=== PATIENT | female | born 1985 | race African-American/Black ===

== ENCOUNTER 2016-12-15 19:21 | Emergency (ER) | payer OTHER, MEDICAID ==
[2016-12-15 19:47] VITALS: BP 119/78; PULSE 72; RESP 16; TEMP 98.2; O2SAT 98
--- NOTE | 2016-12-15 20:28 | UCPHY ---
H & P Time Seen by Provider: 12/15/16 20:08 Patient Type: Established HPI/ROS: CHIEF COMPLAINT: Left ear pain HISTORY OF PRESENT ILLNESS: 31-year-old female reports using a suction type device in order to trying get the wax out of her left ear 2 days ago. She is complaining of pain in the year. No fever. No cold symptoms. No discharge from the ear. Does have a history of having impacted earwax. [No fever, chills, chest pain, shortness of breath, palpitations, vomiting, diarrhea, urinary complaints, headache, lightheadedness. ] REVIEW OF SYSTEMS: Aside from elements discussed in the HPI, a comprehensive 10-point review of systems was reviewed and is negative. PAST MEDICAL HISTORY: Bipolar, anxiety. SOCIAL HISTORY: Nonsmoker. GENERAL APPEARANCE: No acute distress. Well developed well nourished. Alert and oriented x3. FOCUSED EXAM OF HEENT: Atraumatic. Pupils are equal round reactive to light. Extraocular movements are intact. No conjunctival injection. No icterus. Left tympanic membrane occluded with hard wax. External auditory canal normal. Small amount of the left TM is visualized and is normal. Right tympanic membrane occluded 100% with wax. Oropharynx clear, no erythema, no lesions. Neck is supple. Lungs clear to auscultation. Heart regular rate and rhythm. Abdomen soft and nontender. Smoking Status: Never smoked Constitutional: Initial Vital Signs Temperature (C) 36.8 C 12/15/16 19:40 Heart Rate 72 12/15/16 19:40 Respiratory Rate 16 12/15/16 19:40 Blood Pressure 119/78 12/15/16 19:40 O2 Sat (%) 98 12/15/16 19:40 O2 Delivery Mode Room Air Allergies/Adverse Reactions: morphine Allergy (Severe, Verified 12/15/16 19:44) Anaphylaxis Home Medications: Medication Instructions Recorded traZODONE 02/09/14 Cymbalta 09/26/16 Abilify 12/15/16 Ibuprofen [Motrin (*)] 600 mg PO TID PRN #15 tab 12/15/16 Propranolol HCl 12/15/16 Seroquel 12/15/16 MDM/Departure - MDM Medications Given: Discontinued Medications Ibuprofen (Motrin) 600 mg PO EDNOW ONE Stop: 12/15/16 20:45 Last Admin: 12/15/16 20:48 Dose: 600 mg ED Course/Re-evaluation: Lighted ear curette not available at the [facility]. Small amount of wax was able to be removed from the left external auditory canal , however, the wax is very deep and patient does not tolerate the removal well. Patient was advised to begin using debrox wax removal as directed and to follow up at [facility]. She was given referral to Dr. Chaves. She received Motrin 600 mg. Differential Diagnosis: Differential diagnoses for the patient's symptom complex was considered including but not limited to cerumen impaction, otitis externa, otitis media, perforated tympanic membrane, foreign body. - Depart Disposition: Home, Routine, Self-Care Clinical Impression: Pain in left ear Cerumen impaction Qualifiers: Laterality: bilateral Qualified Code(s): H61.23 - Impacted cerumen, bilateral Condition: Good Instructions: Cerumen Impaction (ED) Additional Instructions: Please obtain an ear wax removal solution at the grocery store or pharmacy. Use this as directed. Follow up with your primary care physician on Saturday if you have not had improvement of your symptoms. Take Tylenol or ibuprofen as needed for pain Prescriptions: Ibuprofen [Motrin (*)] 600 mg PO TID PRN #15 tab PRN Reason: Pain, Breakthrough Referrals: Unknown,Unknown [Primary Care Provider] - As per Instructions Ninoska Chaves MD [Medical Doctor] - As per Instructions - PQRS PQRS Measurement: 134: Depression screening and followup, PRIME MD-PHQ2 (12 years and older) Over the last 2 weeks, how often have you been bothered by any of the following problems? 1. Feeling down, depressed, or hopeless? 2. Little interest or pleasure in doing things? Patient answered no to both 1 and 2 130: Documentation of medications. Reviewed all patient medications, doses, route and frequency. 226: Do you smoke? No. 47: 65 and older: Advanced care planning. Patient not over age 65. 51: 18 years old and older with diagnosis of COPD, spirometry performance. Patient has no history of COPD 52: 18 years old and older with COPD and symptoms of COPD or FEV1<60% predicted prescribed a B Agonist. Patient has no history of COPD
[2016-12-15] MEDS ORDERED: IBUPROFEN 200 MG TAB PO ONE (20:44)
== END 2016-12-15 20:55 | disposition home or self-care (01) ==
LOC: CED 19:21
PROC: F09Z3ZZ Cerumen Management Treatment (ICD-10-PCS; principal; 2016-12-15)
DX: H61.22 Impacted cerumen, left ear (principal)
CPT/HCPCS: 69210; G0463; 99214-PO

== ENCOUNTER 2016-12-20 16:36 | Emergency (ER) | payer OTHER, MEDICAID ==
[2016-12-20 17:17] VITALS: BP 114/80; PULSE 80; RESP 16; TEMP 97.9; O2SAT 96
[2016-12-20] MEDS ORDERED: CARBAMIDE PEROXIDE 15 ML BOTTLE EACHEAR ONE (17:35)
--- NOTE | 2016-12-20 18:08 | UCPHY ---
H & P Time Seen by Provider: 12/20/16 17:27 Patient Type: Established HPI/ROS: This patient reports a feeling of both ears being plugged. Her recent history is notable for being diagnosed with otitis media and placed on amoxicillin few days ago. Her symptoms been present over the past few days. The otitis media diagnosis is made an outlying clinic. Past Medical/Surgical History: Reviewed as per nurse's triage she Smoking Status: Unknown if ever smoked Physical Exam: Physical Exam Vital signs are normal. General: No acute distress HEENT: Nose: Clear discharge bilaterally. No sinus tenderness to percussion. Ears: Cerumen impaction bilaterally. Oropharynx: No erythema or exudates. No dysphonia. No drooling or stridor. Eyes: Pupils equal and react to light. Extraocular motions are intact. Lungs: No respiratory distress. Cardiac: Regular rate and rhythm with no murmur gallop or rub Skin: No rash or pallor. Neuro: Alert with no focal deficits noted. Constitutional: Initial Vital Signs Temperature (C) 36.6 C 12/20/16 17:13 Heart Rate 80 12/20/16 17:13 Respiratory Rate 16 12/20/16 17:13 Blood Pressure 114/80 12/20/16 17:13 O2 Sat (%) 96 12/20/16 17:13 O2 Delivery Mode Room Air Allergies/Adverse Reactions: morphine Allergy (Severe, Verified 12/20/16 17:17) Anaphylaxis Home Medications: Medication Instructions Recorded Cymbalta 09/26/16 Propranolol HCl 12/15/16 Seroquel 12/15/16 Medical Decision Making ED Course/Re-evaluation: Debrox bilateral ears. Our tech and nurse then irrigated out ears with removal of cerumen. On repeat exam patient has right external canal and TM are clear left external canal clear with exception of minimal cerumen up against the tympanic membrane with opacity to the tympanic membrane but no significant erythema. - Data Points Medications Given: Discontinued Medications Carbamide Peroxide (Debrox) 5 drop EACHEAR EDNOW ONE Stop: 12/20/16 17:36 Last Admin: 12/20/16 17:41 Dose: 5 drops Departure - Departure Disposition: Home, Routine, Self-Care Clinical Impression: Impacted cerumen of both ears Condition: Good Instructions: Cerumen Impaction (ED) Additional Instructions: Diagnosis: Cerumen impaction bilaterally-resolved Plan: Continue amoxicillin to continue treating the left ear. Return for any worsening despite treatment plan Referrals: Doctor Not,On Staff, MD [Primary Care Provider] - As per Instructions - PQRS PQRS Measurement: NA
== END 2016-12-20 18:23 | disposition home or self-care (01) ==
LOC: CED 16:36
PROC: 3E1B78Z Irrigation of Ear using Irrigating Substance, Via Natural or Artificial Opening (ICD-10-PCS; principal; 2016-12-20)
DX: H61.23 Impacted cerumen, bilateral (principal)
CPT/HCPCS: 69209; G0463; 99214-PO

== ENCOUNTER 2017-02-16 19:40 | Emergency (ER) | payer OTHER, MEDICAID ==
[2017-02-16 20:08] VITALS: BP 122/81; PULSE 99; RESP 16; TEMP 99.3; O2SAT 97
--- NOTE | 2017-02-16 20:55 | UCPHY ---
H & P Patient Type: Established Chief Complaint Nursing Narrative: C/O bilat lymph node discomfort since yesterday,sinus congestion. Denies fever/chills, or ST. C/O nausea but denies vomiting/diarrhea Time Seen by Provider: 02/16/17 20:40 HPI/ROS: Chief complaint: Swollen glands and sore throat HPI: 31-year-old female presenting sensation of swollen glands and sore throat since yesterday. Patient states that she had and endoscopy yesterday for acid reflux. When she went home she felt fine but in the evening started noticing some sore throat. Does not hurt to swallow PU. She is able swallow. Feels like her against by be swollen. Also been having some nasal congestion for the last few days. No fevers or chills. No nausea or vomiting. No abdominal pain. No epigastric pain. ROS: 10 point Review of Systems is negative except as noted in the HPI. Past medical history: Reflux esophagitis Physical exam: Gen: Awake, Alert, No Distress HEENT: Nose: Clear rhinorrhea Eyes: PERRLA, EOMI Mouth: Moist mucosa no pharyngeal erythema or exudate, no swelling Neck: Supple, no JVD, mild cervical lymphadenopathy Chest: nontender, lungs clear to auscultation Heart: S1, S2 normal, no murmur Abd: Soft, non-tender, no guarding Back: no CVA tenderness, no midline tenderness Ext: no edema, non-tender Skin: no rash Neuro: CN II-XII intact, Sensation grossly intact, Strength 5/5 in bilateral upper and lower extremities - Personal History LMP (Females 10-55): 22-28 Days Ago Tetanus Vaccine Date: within 10 years - Medical/Surgical History Hx Asthma: Yes Hx Chronic Respiratory Disease: No Hx Diabetes: No Hx Cardiac Disease: No Hx Renal Disease: No Hx Cirrhosis: No Hx Alcoholism: No Hx HIV/AIDS: No Hx Splenectomy or Spleen Trauma: No Other PMH: PCP AGUILAR Soni. Flu Vacc UTD - Family History Significant Family History: No pertinent family hx - Social History Smoking Status: Unknown if ever smoked Constitutional: Initial Vital Signs Temperature (C) 37.4 C 02/16/17 20:03 Heart Rate 99 02/16/17 20:03 Respiratory Rate 16 02/16/17 20:03 Blood Pressure 122/81 H 02/16/17 20:03 O2 Sat (%) 97 02/16/17 20:03 O2 Delivery Mode Room Air Allergies/Adverse Reactions: morphine Allergy (Severe, Verified 02/16/17 20:02) Anaphylaxis Home Medications: Medication Instructions Recorded Cymbalta 09/26/16 Propranolol HCl 12/15/16 Seroquel 12/15/16 Gabapentin 02/16/17 Medical Decision Making ED Course/Re-evaluation: 31-year-old with sore throat after having endoscopy yesterday. She has no signs of edema or infection. Does have some nasal congestion could have a viral upper respiratory symptoms as continuing this. Certainly no infection, abscess or hematoma. Airways patent. She is otherwise well-appearing. Will discharge with follow-up with primary care physician. Departure - Departure Disposition: Home, Routine, Self-Care Clinical Impression: Throat pain Condition: Good Instructions: Viral Syndrome (ED) Additional Instructions: Follow up with primary care physician in 3-4 days if symptoms are not improving. You may alternate ibuprofen with acetaminophen as needed for aches and pains. Return to the emergency department for any concerns. Referrals: NONE *PRIMARY CARE P,. [Primary Care Provider] - As per Instructions [facility] [Outside] - As per Instructions - PQRS PQRS Measurement: NA
== END 2017-02-16 21:07 | disposition home or self-care (01) ==
LOC: CED 19:40
DX: J02.9 Acute pharyngitis, unspecified (principal)
CPT/HCPCS: 99214-PO; G0463-PO

== ENCOUNTER 2017-09-21 19:18 | Emergency (ER) | payer OTHER, MEDICAID ==
[2017-09-21 19:37] VITALS: BP 134/98; PULSE 70; RESP 18; TEMP 98.4; O2SAT 98
--- NOTE | 2017-09-21 19:43 | EDPHY ---
H & P Time Seen by Provider: 09/21/17 19:32 HPI/ROS: CHIEF COMPLAINT: Cough HISTORY OF PRESENT ILLNESS: Patient is a 32-year-old female who comes to the emergency department complaining of a dry cough for the last week. No fever. No shortness of breath. She states that she has had tightness in her chest since 8 years ago when she had bronchitis the 1st time. She is worried that she may have bronchitis again. Her chest tightness does not feel any different today than normal. No nausea or vomiting. REVIEW OF SYSTEMS: Constitutional: denies: chills, fever, recent illness, recent injury EENTM: denies: blurred vision, double vision, nose congestion Respiratory: denies: cough, shortness of breath Cardiac: denies: chest pain, irregular heart rate, lightheadedness, palpitations Gastrointestinal/Abdominal: denies: abdominal pain, diarrhea, nausea, vomiting, blood streaked stools Genitourinary: denies: dysuria, frequency, hematuria, pain Musculoskeletal: denies: joint pain, muscle pain Skin: denies: lesions, rash, jaundice, bruising Neurological: denies: headache, numbness, paresthesia, tingling, dizziness, weakness Hematologic/Lymphatic: denies: blood clots, easy bleeding, easy bruising Immunologic/allergic: denies: HIV/AIDS, transplant EXAM: GENERAL: Well-appearing, well-nourished and in no acute distress. HEAD: Atraumatic, normocephalic. EYES: Pupils equal round and reactive to light, extraocular movements intact, sclera anicteric, conjunctiva are normal. ENT: TMs normal, nares patent, oropharynx clear without exudates. Moist mucous membranes. NECK: Normal range of motion, supple without lymphadenopathy or JVD. LUNGS: Breath sounds clear to auscultation bilaterally and equal. No wheezes rales or rhonchi. HEART: Regular rate and rhythm without murmurs, rubs or gallops. ABDOMEN: Soft, nontender, normoactive bowel sounds. No guarding, no rebound. No masses appreciated. BACK: No CVA tenderness, no spinal tenderness, step-offs or deformities EXTREMITIES: Normal range of motion, no pitting or edema. No clubbing or cyanosis. NEUROLOGICAL: Cranial nerves II through XII grossly intact. Normal speech, normal gait. 5/5 strength, normal movement in all extremities, normal sensation PSYCH: Normal mood, normal affect. SKIN: Warm, dry, normal turgor, no visible rashes or lesions. Source: Patient Exam Limitations: No limitations - Personal History Tetanus Vaccine Date: within 10 years - Medical/Surgical History Hx Asthma: Yes Hx Chronic Respiratory Disease: No Hx Diabetes: No Hx Cardiac Disease: No Hx Renal Disease: No Hx Cirrhosis: No Hx Alcoholism: No Hx HIV/AIDS: No Hx Splenectomy or Spleen Trauma: No Other PMH: PCP [facility] Celeste Soni. Flu Vacc UTD - Family History Significant Family History: No pertinent family hx - Social History Smoking Status: Unknown if ever smoked Alcohol Use: Sober Drug Use: None Constitutional: Initial Vital Signs Temperature (C) 36.9 C 09/21/17 19:34 Heart Rate 70 09/21/17 19:34 Respiratory Rate 18 09/21/17 19:34 Blood Pressure 134/98 H 09/21/17 19:34 O2 Sat (%) 98 09/21/17 19:34 O2 Delivery Mode Room Air Allergies/Adverse Reactions: morphine Allergy (Severe, Verified 09/21/17 19:38) Dyspnea Home Medications: Medication Instructions Recorded Cymbalta 09/26/16 Propranolol HCl 12/15/16 Seroquel 12/15/16 Gabapentin 02/16/17 Benzonatate [Tessalon Pearles (RX)] 100 mg PO TID #20 cap 09/21/17 Medical Decision Making - Diagnostics Imaging Results: Imaging Impressions Chest X-Ray 09/21/17 19:37 Impression: No acute findings in the chest. Imaging: Discussed imaging studies w/ core stacker Radiologist ED Course/Re-evaluation: The patient is saturating 98% on room air. She has normal lung exam and is in no distress. 8:15 p.m. the patient's x-rays reassuring. She is saturating 97% on room air in no distress. We discussed options and agreed to prescribe her Tessalon Perles. We discussed indications for returning. Differential Diagnosis: Partial list of the Differential diagnosis considered include but were not limited to; bronchitis, pneumonia, upper respiratory tract infection, allergy and although unlikely based on the history and physical exam, I also considered acute coronary disease, arrhythmia. I discussed these differential diagnoses and the plan with the patient as well as the usual and expected course. The patient understands that the diagnosis is provisional and that in medicine we are not always correct and that further workup is often warranted. Usual and customary warnings were given. All of the patient's questions were answered. The patient was instructed to return to the emergency department should the symptoms at all worsen or return, otherwise to followup with the physician as we discussed. - Data Points Medications Given: Discontinued Medications Benzonatate (Tessalon Pearles) 200 mg PO EDNOW ONE Stop: 09/21/17 20:18 Last Admin: 09/21/17 20:20 Dose: 200 mg Departure - Departure Disposition: Home, Routine, Self-Care Clinical Impression: Cough in adult Condition: Fair Instructions: Acute Cough (ED) Referrals: NONE *PRIMARY CARE P,. [Primary Care Provider] - As per Instructions Kenia Colvin MD [Medical Doctor] - As per Instructions Prescriptions: Benzonatate [Tessalon Pearles (RX)] 100 mg PO TID #20 cap
[2017-09-21] MEDS ORDERED: BENZONATATE 100 MG CAP PO ONE (20:17)
== END 2017-09-21 20:15 | disposition home or self-care (01) ==
LOC: CED 19:18
DX: R05 Cough (principal); J45.909 Unspecified asthma, uncomplicated
CPT/HCPCS: 71020-PO

== ENCOUNTER 2018-04-25 21:44 | Emergency (ER) | payer OTHER, MEDICAID ==
--- NOTE | 2018-04-25 22:14 | CPEKG ---
Heart Rate: 77 RR Interval: 779 P-R Interval: 172 QRSD Interval: 70 QT Interval: 368 QTC Interval: 417 P Pitkin: 59 QRS Pitkin: 28 T Wave Pitkin: 15 EKG Severity - NORMAL ECG - EKG Impression: SINUS RHYTHM Electronically Signed By: Daniel Moeller 25-Apr-2018 23:19:31
[2018-04-25 23:05] LABS: PLATELET COUNT 267 10^3/uL (150-400)
--- NOTE | 2018-04-25 23:52 | EDPHY ---
H & P Stated Complaint: chest pressure intermittantly since lastnight Time Seen by Provider: 04/25/18 22:32 HPI/ROS: HPI The patient presents with chest pain which has been present since last night which has been intermittent and is described as a pressure like and squeezing sensation in her mid chest. She has never had this before. She has occasional shortness of breath, no nausea or vomiting. She has not any leg swelling, recent airplane travel. She does take propanolol which she has been taking lately and has caused some episodes of hypotension, she takes this for tachycardia. She has taken an aspirin however this is not helped her pain. Her symptoms do not radiate. She has a history of LOUIS though has not been using her CPAP machine lately. REVIEW OF SYSTEMS Constitutional: No fever, no chills. Eyes: No discharge. ENT: No sore throat. Cardiovascular: No chest pain, no palpitations. Respiratory: No cough, no shortness of breath. Gastrointestinal: No abdominal pain, no vomiting. Genitourinary: No hematuria. Musculoskeletal: No back pain. Skin: No rashes. Neurological: No headache. PMHx: GERD, history of tachycardia treated with propanolol, obstructive sleep apnea with CPAP machine at home Soc Hx: Here with her sister and mother PHYSICAL General Appearance: Alert, no distress Eyes: Pupils equal and round no pallor or injection ENT, Mouth: Mucous membranes moist Chest wall: There is tenderness throughout her sternum on palpation Respiratory: There are no retractions, lungs are clear to auscultation Cardiovascular: Regular rate and rhythm Gastrointestinal: Abdomen is soft and non-tender, no masses, bowel sounds normal Neurological: A&O, moves all extremities Skin: Warm and dry, no rashes Musculoskeletal: Neck is supple non tender Extremities: symmetrical, full range of motion Psychiatric: Patient is oriented X 3, there is no agitation Source: Patient Exam Limitations: No limitations - Personal History LMP (Females 10-55): Now Current Tetanus/Diphtheria Vaccine: No Current Tetanus Diphtheria and Acellular Pertussis (TDAP): No - Medical/Surgical History Hx Asthma: No Hx Chronic Respiratory Disease: No Hx Diabetes: No Hx Cardiac Disease: No Hx Renal Disease: No Hx Cirrhosis: No Hx Alcoholism: No Hx HIV/AIDS: No Hx Splenectomy or Spleen Trauma: No Other PMH: Tachycardia, Depression - Social History Smoking Status: Never smoked Constitutional: Initial Vital Signs Temperature (C) 36.9 C 04/25/18 21:45 Heart Rate 88 04/25/18 21:45 Respiratory Rate 16 04/25/18 21:45 Blood Pressure 117/73 04/25/18 21:45 O2 Sat (%) 96 04/25/18 21:45 O2 Delivery Mode Room Air Allergies/Adverse Reactions: amitriptyline Allergy (Verified 04/25/18 21:50) morphine Allergy (Verified 04/25/18 21:48) Home Medications: Medication Instructions Recorded Propranolol HCl 04/25/18 Medical Decision Making - Diagnostics EKG Interpretation: EKG: Complete interpretation has been separately recorded in the [facility] archive. Summary impression: Normal sinus rhythm Imaging Results: Imaging Impressions Chest X-Ray 04/25/18 22:42 Impression: Chest negative for acute cardiopulmonary abnormality. Chest x-ray two view shows no cardiomegaly, no effusion, no infiltrate, interpreted by me, radiology interpretation is pending. Imaging: I viewed and interpreted images myself Differential Diagnosis: This is a 32-year-old female with history of tachycardia managed on propanolol, LOUIS though not using CPAP machine, depression who presents from home with 1 day of intermittent pressure-like midsternal chest pain without associated features. On exam, vital signs are normal, she does have tenderness to her chest wall without any other abnormal physical exam findings. Differential diagnosis includes ACS, pneumonia, pneumothorax, GERD, anxiety. I have considered PE, however the patient is PERC negative so I will not check a D -dimer. In the emergency department, patient was monitored on the monitoring coordinator with no events. EKG, chest x-ray, basic labs including CBC, BMP and troponin were all unremarkable. Given that her symptoms have been going on for 24 hr, I do not feel we need to repeat troponin. - Data Points Laboratory Results: Laboratory Results 04/25/18 22:57 04/25/18 22:57 04/25/18 04/25/18 04/25/18 23:01 22:57 22:57 WBC 7.59 10^3/uL 10^3/uL (3.80-9.50) RBC 4.52 10^6/uL 10^6/uL (4.18-5.33) Hgb 12.7 g/dL g/dL (12.6-16.3) Hct 38.4 % % (38.0-47.0) MCV 85.0 fL fL (81.5-99.8) MCH 28.1 pg pg (27.9-34.1) MCHC 33.1 g/dL g/dL (32.4-36.7) RDW 13.8 % % (11.5-15.2) Plt Count 267 10^3/uL 10^3/uL (150-400) MPV 10.3 fL fL (8.7-11.7) Neut % (Auto) 54.7 % % (39.3-74.2) Lymph % (Auto) 33.7 % % (15.0-45.0) [place] % (Auto) 5.1 % % (4.5-13.0) Eos % (Auto) 5.5 % % (0.6-7.6) Baso % (Auto) 0.7 % % (0.3-1.7) Nucleat RBC Rel Count 0.0 % % (0.0-0.2) Absolute Neuts (auto) 4.15 10^3/uL 10^3/uL (1.70-6.50) Absolute Lymphs (auto) 2.56 10^3/uL 10^3/uL (1.00-3.00) Absolute Monos (auto) 0.39 10^3/uL 10^3/uL (0.30-0.80) Absolute Eos (auto) 0.42 10^3/uL H 10^3/uL (0.03-0.40) Absolute Basos (auto) 0.05 10^3/uL 10^3/uL (0.02-0.10) Absolute Nucleated RBC 0.00 10^3/uL 10^3/uL (0-0.01) Immature Gran % 0.3 % % (0.0-1.1) Immature Gran # 0.02 10^3/uL 10^3/uL (0.00-0.10) Sodium 136 mEq/L mEq/L (135-145) Potassium 3.4 mEq/L mEq/L (3.3-5.0) Chloride 106 mEq/L mEq/L (97-110) Carbon Dioxide 25 mEq/l mEq/l (22-31) Anion Gap 5 mEq/L L mEq/L (8-16) BUN 16 mg/dL mg/dL (7-23) Creatinine 1.1 mg/dL H mg/dL (0.6-1.0) Estimated GFR 57 Glucose 118 mg/dL H mg/dL (70-100) Calcium 9.1 mg/dL mg/dL (8.5-10.4) POC Troponin I 0.00 ng/mL ng/mL (0.00-0.08) Point of Care Test Results: Chemistry 04/25/18 23:01 POC Troponin I 0.00 ng/mL ng/mL (0.00-0.08) Departure - Departure Disposition: Home, Routine, Self-Care Clinical Impression: Chest pain Qualifiers: Chest pain type: unspecified Qualified Code(s): R07.9 - Chest pain, unspecified Condition: Good Instructions: Chest Pain (ED), Chest Wall Pain (ED) Additional Instructions: I recommend that you start using your CPAP machine again. You may also want to try an antacid such is famotidine which is available [id number] to see if this helps your chest pain. If this does not help, you can try ibuprofen 400 mg every 6 hr. You should return to the emergency department if your worse in any way. Otherwise, you should follow up with your primary care doctor. Referrals: NONE *PRIMARY CARE P,. [Primary Care Provider] - As per Instructions
[2018-04-26 00:22] VITALS: BP 106/77
== END 2018-04-26 00:22 | disposition home or self-care (01) ==
LOC: MERGE 21:44
DX: R07.9 Chest pain, unspecified (principal)
CPT/HCPCS: 84484-PO

== ENCOUNTER 2018-10-31 20:20 | Emergency (ER) | payer OTHER, MEDICAID ==
[2018-10-31 20:29] VITALS: BP 135/81
--- NOTE | 2018-10-31 20:42 | EDPHY ---
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" Time Seen by Provider: 10/31/18 20:39 - Personal History LMP (Females 10-55): Irregular Current Tetanus Diphtheria and Acellular Pertussis (TDAP): Yes Tetanus Vaccine Date: within 10 years - Medical/Surgical History Hx Asthma: No Hx Chronic Respiratory Disease: No Hx Diabetes: No Hx Cardiac Disease: No Hx Renal Disease: No Hx Cirrhosis: No Hx Alcoholism: No Hx HIV/AIDS: No Hx Splenectomy or Spleen Trauma: No Other PMH: Tachycardia, Depression, PCOS - Social History Smoking Status: Never smoked Constitutional: Initial Vital Signs Temperature (C) 36.7 C 10/31/18 20:27 Heart Rate 112 H 10/31/18 20:27 Respiratory Rate 20 10/31/18 20:27 Blood Pressure 135/81 H 10/31/18 20:27 O2 Sat (%) 98 10/31/18 20:27 O2 Delivery Mode Room Air Allergies/Adverse Reactions: morphine Allergy (Severe, Verified 10/31/18 20:26) Dyspnea amitriptyline Allergy (Verified 10/31/18 20:26) Home Medications: Medication Instructions Recorded Cymbalta 09/26/16 Propranolol HCl 12/15/16 Seroquel 12/15/16 Gabapentin 02/16/17 Benzonatate [Tessalon Pearles (RX)] 100 mg PO TID #20 cap 09/21/17 Propranolol HCl 04/25/18 Medical Decision Making ED Course/Re-evaluation: CHIEF COMPLAINT: Right wrist swollen HISTORY OF PRESENT ILLNESS: The patient is a 33 y/o female complaining of right wrist pain onset tonight while waiting in the ED for a friend. She denies any precipitating trauma, illness, or other event and just became worried it was swollen while waiting with her friend in the department. No weakness, paresthesias, warmth, fever, or other complaints. REVIEW OF SYSTEMS: A comprehensive 10 system review of systems is otherwise negative aside from elements mentioned in the history of present illness and medical decision making. PHYSICAL EXAM: HR, BP, O2 Sat, RR. Temp noted General Appearance: Alert, well hydrated, appropriate, and non-toxic appearing. Head: Atraumatic without scalp tenderness or obvious injury Eyes: Pupils equal, round, reactive to light and accommodation, EOMI, no trauma , no injection. Throat: Mucus membranes moist. Neck: Supple. Respiratory: No distress. Cardiovascular: Good capillary refill all extremities. Musculoskeletal: Normal active ROM of all extremities, atraumatic. Neurological: Alert, appropriate, and interactive. Nonfocal. Skin: No rashes, good turgor, no nodules on palpation. PAST MEDICAL HISTORY: PCOS, depression PAST SURGICAL HISTORY: Noncontributory SOCIAL HISTORY: [place] Single. Not employed. Has a live dachshund in a stroller next to her. DIFFERENTIAL DIAGNOSIS: The differential diagnosis for the patient's symptoms included but was not limited to sprain, contusion, fracture, ligamentous injury. MEDICAL DECISION MAKING: This is a 33 y/o female who presents with isolated right wrist pain onset tonight. She has a completely normal exam and shakes my hand with no apparent wrist pain. She is neurovascularly intact. No indication for imaging. She will be discharged with a velcro thumbspika splint and referral to hand specialist for follow up if needed. Standard precautions discussed. She is comfortable with this plan. Departure - Departure Disposition: Home, Routine, Self-Care Clinical Impression: Right wrist pain Condition: Good Instructions: Arthralgia (ED) Additional Instructions: 1. Wear velcro splint for the next 5 days for comfort. 2. Follow up with hand specialist for unimproved symptoms over the next week. 3. Use ibuprofen or Tylenol as directed on the packaging if needed for pain over the next 2-3 days. 4. Return for worsening of condition. Referrals: Kenia Soni [Primary Care Provider] - As per Instructions Henry Carson MD [Medical Doctor] - As per Instructions Report Scribed for: Daniel Moeller Report Scribed by: Luann Salazar Date of Report: 10/31/18 Time of Report: 20:40
== END 2018-10-31 20:47 | disposition home or self-care (01) ==
DX: M25.531 Pain in right wrist (principal); F32.9 Major depressive disorder, single episode, unspecified
CPT/HCPCS: 99282; L3984

== ENCOUNTER 2019-01-24 21:27 | Emergency (ER) | payer OTHER, MEDICAID ==
--- NOTE | 2019-01-24 22:00 | EDPHY ---
H & P Stated Complaint: r side back pain x 2 days, denies trauma Time Seen by Provider: 01/24/19 21:50 HPI/ROS: Chief Complaint: Right back pain HPI: 33-year-old woman presenting with 2 days of right-sided back and flank pain. Denies any trauma. Described in her right lateral back. Worse with movement. Pain is about a 4/10. No urinary urgency or frequency. Last menstrual. Is in November. She does take oral contraceptives. No lower abdominal pain. No numbness or weakness. Does hurt a bit to move around. Feels like a pulled muscle but she wants to make sure that there is not anything going on with her kidneys. No blood in her urine. No falls or injuries. No chest pain or shortness of breath. ROS: 10 systems were reviewed and were negative except those elements noted in the HPI. PMH: Tachycardia, hypertension, borderline diabetes Social History: No smoking, no alcohol, no recreational drug use Family History: non-contributory Physical Exam: Gen: Awake, Alert, No Distress HEENT: Nose: no rhinorrhea Eyes: PERRLA, EOMI Mouth: Moist mucosa Neck: Supple, no JVD Chest: nontender, lungs clear to auscultation Heart: S1, S2 normal, no murmur Abd: Soft, non-tender, no guarding Back: no CVA tenderness, no midline tenderness, she does have tenderness along the right lateral posterior axillary line ribs evident 12 region reproducing her presenting complaint. Ext: no edema, non-tender Skin: no rash Neuro: CN II-XII intact, Sensation grossly intact, Strength 5/5 in bilateral upper and lower extremities - Personal History LMP (Females 10-55): 22-28 Days Ago Tetanus Vaccine Date: within 10 years - Medical/Surgical History Hx Asthma: No Hx Chronic Respiratory Disease: No Hx Diabetes: No Hx Cardiac Disease: No Hx Renal Disease: No Hx Cirrhosis: No Hx Alcoholism: No Hx HIV/AIDS: No Hx Splenectomy or Spleen Trauma: No Other PMH: Tachycardia, Depression, PCOS, bladder surgery for overactive bladder 2016 - Social History Smoking Status: Never smoked Constitutional: Initial Vital Signs Temperature (C) 36.6 C 01/24/19 21:31 Heart Rate 93 01/24/19 21:31 Respiratory Rate 16 01/24/19 21:31 Blood Pressure 125/81 H 01/24/19 21:31 O2 Sat (%) 97 01/24/19 21:31 O2 Delivery Mode Room Air Allergies/Adverse Reactions: morphine Allergy (Severe, Verified 01/24/19 21:28) Dyspnea amitriptyline Allergy (Verified 01/24/19 21:28) Home Medications: Medication Instructions Recorded Cymbalta 09/26/16 Propranolol HCl 12/15/16 Seroquel 12/15/16 Gabapentin 02/16/17 Control 01/24/19 Medical Decision Making ED Course/Re-evaluation: 33 with right flank pain. Urinalysis is completely normal. She has reproducible tenderness. No neurologic complaints or red flags. Symptoms consistent with musculoskeletal back pain. Will discharge with follow-up with primary care physician, [id number] analgesia is appropriate. - Data Points Laboratory Results: 01/24/19 21:40 Urine Color YELLOW Urine Appearance CLEAR Urine pH 6.0 (5.0-7.5) Ur Specific [place] 1.010 (1.002-1.030) Urine Protein NEGATIVE (NEGATIVE) Urine Ketones NEGATIVE (NEGATIVE) Urine Blood NEGATIVE (NEGATIVE) Urine Nitrate NEGATIVE (NEGATIVE) Urine Bilirubin NEGATIVE (NEGATIVE) Urine Urobilinogen NEGATIVE EU EU (0.2-1.0) Ur Leukocyte Esterase NEGATIVE (NEGATIVE) Urine Glucose NEGATIVE (NEGATIVE) Departure - Departure Disposition: Home, Routine, Self-Care Clinical Impression: Back pain Condition: Good Instructions: Back Pain (ED), Lower Back Exercises (ED) Additional Instructions: Take ibuprofen, 600 mg, 3 times a day. You may also take acetaminophen, 1000 mg every 6 hours. Apply ice for 15 minutes of every hour while awake. Make sure to remain active. Did do not lay in bed or sit in a chair for long periods. Avoid heavy lifting or bending at work until cleared by your physician. Please see the attached back exercise instructions. Follow up with your primary care physician in 2-3 days for further evaluation. Referrals: NONE *PRIMARY CARE P,. [Primary Care Provider] - As per Instructions
[2019-01-24 22:27] VITALS: BP 127/69
== END 2019-01-24 22:27 | disposition home or self-care (01) ==
DX: M54.9 Dorsalgia, unspecified (principal)

== ENCOUNTER 2019-02-15 16:51 | Emergency (ER) | payer OTHER, MEDICAID ==
[2019-02-15 16:56] VITALS: BP 121/80
--- NOTE | 2019-02-15 16:58 | EDPHY ---
H & P Stated Complaint: wax in r ear/went to another ER but they said they were too busy to remove Time Seen by Provider: 02/15/19 16:57 - Personal History LMP (Females 10-55): Now Current Tetanus Diphtheria and Acellular Pertussis (TDAP): Yes Tetanus Vaccine Date: within 10 years - Medical/Surgical History Hx Asthma: No Hx Chronic Respiratory Disease: No Hx Diabetes: No Hx Cardiac Disease: No Hx Renal Disease: No Hx Cirrhosis: No Hx Alcoholism: No Hx HIV/AIDS: No Hx Splenectomy or Spleen Trauma: No Other PMH: Tachycardia, Depression, PCOS, bladder surgery for overactive bladder 2016 - Social History Smoking Status: Never smoked Constitutional: Initial Vital Signs Temperature (C) 37 C 02/15/19 16:53 Heart Rate 90 02/15/19 16:53 Respiratory Rate 17 02/15/19 16:53 Blood Pressure 121/80 H 02/15/19 16:53 O2 Sat (%) 96 02/15/19 16:53 O2 Delivery Mode Room Air Allergies/Adverse Reactions: morphine Allergy (Severe, Verified 02/15/19 16:53) Dyspnea amitriptyline Allergy (Verified 02/15/19 16:53) Home Medications: Medication Instructions Recorded Cymbalta 09/26/16 Propranolol HCl 12/15/16 Seroquel 12/15/16 Gabapentin 02/16/17 Control 01/24/19 Medical Decision Making ED Course/Re-evaluation: CHIEF COMPLAINT: Wax in right ear HISTORY OF PRESENT ILLNESS: The patient is a 33 y/o female complaining of having wax in her right ear. She tried presenting to another emergency department, but they were "too busy to remove the wax". No fever, headache, body aches, lightheadedness, chest pain, heart palpitations, shortness of breath, cough, abdominal pain, urinary or bowel complaints, numbness, paresthesias. REVIEW OF SYSTEMS: A comprehensive 10 system review of systems is otherwise negative aside from elements mentioned in the history of present illness and medical decision making. PHYSICAL EXAM: HR, BP, O2 Sat, RR. Temp noted General Appearance: Alert, well hydrated, appropriate, and non-toxic appearing. Head: Atraumatic without scalp tenderness or obvious injury Eyes: Pupils equal, round, reactive to light and accommodation, EOMI, no trauma , no injection. Ears: Bilateral cerumen impaction. No perforation, normal landmarks Nose: Atraumatic, no rhinorrhea, clear. Throat: There is no erythema or exudates, no lesions, normal tonsils, mucus membranes moist. Neck: Supple, 2+ carotid upstroke, nontender, no lymphadenopathy. Musculoskeletal: Normal active ROM of all extremities, atraumatic. Neurological: Alert, appropriate, and interactive. The patient has normal DTRs and non-focal cranial nerves, motor, sensory, and cerebellar exam. Skin: No rashes, good turgor, no nodules on palpation. Past medical history: Tachycardia, Depression, PCOS Past surgical history: Bladder surgery for overactive bladder 2016 Family history: Denies Social history: Family at bedside, single, lives in [place] DIAGNOSTICS/PROCEDURES/CRITICAL CARE TIME: Not indicated. DIFFERENTIAL DIAGNOSIS: The differential diagnosis for the patient's ear pain includes but is not limited to cerumen impaction, otitis interna, otitis media, otitis externa, hemotympanum, ruptured ear drum. MEDICAL DECISION MAKING: The patient is a 33 y/o female presenting with having wax in her right ear. On exam she has a bilateral cerumen impaction. The tech will irrigate the patient' s ears. 1733: Reassessed patient, she is feeling better after the earrigation. Return precautions provided; patient is comfortable with this plan. Departure - Departure Disposition: Home, Routine, Self-Care Clinical Impression: Cerumen impaction Qualifiers: Laterality: bilateral Qualified Code(s): H61.23 - Impacted cerumen, bilateral Condition: Good Instructions: Cerumen Impaction (ED) Additional Instructions: 1. Follow-up with your primary doctor within 72 hours. 2. Return to the Emergency Department for fever, chest pain, shortness of breath , increasing pain or other worsening of condition. Referrals: [facility],. [Clinic] - As per Instructions Report Scribed for: Daniel Moeller Report Scribed by: Fani Anne Date of Report: 02/15/19 Time of Report: 16:58
== END 2019-02-15 17:38 | disposition home or self-care (01) ==
PROC: 3E1B78Z Irrigation of Ear using Irrigating Substance, Via Natural or Artificial Opening (ICD-10-PCS; principal; 2019-02-15)
DX: H61.23 Impacted cerumen, bilateral (principal)

== ENCOUNTER 2019-02-20 18:55 | Emergency (ER) | payer OTHER, MEDICAID ==
[2019-02-20 19:00] VITALS: BP 101/68
--- NOTE | 2019-02-20 19:06 | EDPHY ---
H & P Stated Complaint: constipation Time Seen by Provider: 02/20/19 19:03 HPI/ROS: HPI: This is a 33-year-old female who presents with Chief Complaint: Constipation Location: Abdomen Quality: No bowel movement Duration: 1 week Signs and Symptoms: no fever, no nausea, no vomiting, no hematemesis, no blood in stool, no abdominal bloating, no diarrhea, no back pain, no urinary symptoms , no testicular/groin pain, no indigestion, no chest pain, no shortness of breath Timing: Gradually worsening Severity: [id number] Context: Patient has a history of gastroparesis presents with no bowel movement x1 week. Reports that last week she had loose stools. Has become "immune to MiraLax." Passing gas from below. Eating 3 meals a day without difficulty. Patient denies fever, nausea, vomiting, urinary symptoms. Modifying Factors: No [id number] medications tried Comment: ROS: A comprehensive 10 system review of systems is otherwise negative aside from elements mentioned in the history of present illness. MEDICAL/SURGICAL/SOCIAL HISTORY: Medical history: Tachycardia, Depression, PCOS. Takes oral control pills Surgical history: bladder surgery for overactive bladder 2016 Social history: Never smoked. Family history noncontributory. CONSTITUTIONAL: Extremely well-appearing adult black female, awake and alert, no obvious distress HEENT: Atraumatic and normocephalic, PERRL, EOMI. Nares patent; no rhinorrhea; no nasal mucosal edema. Tympanic membranes clear. Oropharynx clear, no exudate and moist pink mucosa. Airway patent. No lymphadenopathy. No meningismus. Cardiovascular: Normal S1/S2, regular rate, regular rhythm, without murmur rub or gallop. PULMONARY/CHEST: Symmetrical and nontender. Clear to auscultation bilaterally. Good air movement. No accessory muscle usage. ABDOMEN: Soft, slightly distended, nontender, no rebound, no guarding, no peritoneal signs, no masses or organomegaly. No CVAT. Bowel sounds heard x4 quadrants EXTREMITIES: 2/2 pulses, strength 5/5, no deformities, no clubbing, no cyanosis or edema. NEUROLOGICAL: no focal neuro deficits. GCS 15. SKIN: Warm and dry, no erythema. no rash. Good capillary refill. Source: Patient Exam Limitations: No limitations - Personal History Current Tetanus/Diphtheria Vaccine: Yes Current Tetanus Diphtheria and Acellular Pertussis (TDAP): Yes Tetanus Vaccine Date: within 10 years - Medical/Surgical History Hx Asthma: No Hx Chronic Respiratory Disease: No Hx Diabetes: No Hx Cardiac Disease: No Hx Renal Disease: No Hx Cirrhosis: No Hx Alcoholism: No Hx HIV/AIDS: No Hx Splenectomy or Spleen Trauma: No Other PMH: Tachycardia, Depression, PCOS, bladder surgery for overactive bladder 2016 - Social History Smoking Status: Never smoked Constitutional: Initial Vital Signs Temperature (C) 36.9 C 02/20/19 18:59 Heart Rate 91 02/20/19 18:59 Respiratory Rate 16 02/20/19 18:59 Blood Pressure 101/68 02/20/19 18:59 O2 Sat (%) 96 02/20/19 18:59 O2 Delivery Mode Room Air Allergies/Adverse Reactions: morphine Allergy (Severe, Verified 02/20/19 18:59) Dyspnea amitriptyline Allergy (Verified 02/20/19 18:59) Home Medications: Medication Instructions Recorded Cymbalta 09/26/16 Propranolol HCl 12/15/16 Seroquel 12/15/16 Gabapentin 02/16/17 Control 01/24/19 Magnesium Citrate [Magnesium 300 ml PO ONCE #1 bottle 02/20/19 Citrate 300 ml (*)] Ondansetron Odt [Zofran Odt 4 mg 4 mg PO Q4 PRN #12 tab 02/20/19 (*)] Medical Decision Making - Diagnostics Imaging Results: Imaging Impressions Abdomen X-Ray 02/20/19 19:06 Impression: Moderate constipation. ED Course/Re-evaluation: Vital signs reviewed and stable upon arrival. No systemic signs. KUB x-ray ordered and my read via bedside imaging in which I showed the x-ray to the patient; no signs of obstruction. moderate stool burden. Given glycerin suppository and magnesium citrate. Discussed bowel regimen and referral to Gastroenterology Abdomen is soft and nontender. This patient was seen under the supervision of my secondary supervising physician. I evaluated and cared for this patient with attending. Differential Diagnosis: Differential diagnosis includes but is not limited to constipation, ileus, obstipation, small-bowel obstruction, fecal impaction - Data Points Medications Given: Discontinued Medications Glycerin (Glycerin Adult) 1 each NV ONCE ONE Stop: 02/20/19 19:26 Last Admin: 02/20/19 19:45 Dose: 1 each Magnesium Citrate (Magnesium Citrate) 300 ml PO EDNOW ONE Stop: 02/20/19 19:26 Last Admin: 02/20/19 19:45 Dose: 1 btl Departure - Departure Disposition: Home, Routine, Self-Care Clinical Impression: Nondiabetic gastroparesis, Constipation by delayed colonic transit Condition: Good Instructions: Magnesium Citrate (By mouth), Glycerin (Into the rectum), Constipation (ED), Gastroparesis (ED) Additional Instructions: Consume a minimum of 8-10 glasses of water or electrolyte fluid replacement drinks that include Gatorade, Powerade, Pedialyte. Eat a liquid diet for the next 48 hours and then slowly advance as tolerated. Take magnesium citrate along with 8 oz of Gatorade. If no bowel movement in 24 hr; repeat taking magnesium Citrate with [address] glycerin suppository once you arrive home. Take Zofran every 4-6 hours as needed for nausea, vomiting. Establish care with Gastroenterology. Referrals: Gio Beck MD [Medical Doctor] - As per Instructions Prescriptions: Magnesium Citrate [Magnesium Citrate 300 ml (*)] 300 ml PO ONCE #1 bottle Ondansetron Odt [Zofran Odt 4 mg (*)] 4 mg PO Q4 PRN #12 tab PRN Reason: Nausea/Vomiting, Use 1st
[2019-02-20] MEDS ORDERED: MAGNESIUM CITRATE 300 ML BOTTLE PO ONE (19:25)
[2019-02-20] MEDS ORDERED: GLYCERIN ADULT 1 EACH SUPP PR ONE (19:25)
== END 2019-02-20 19:45 | disposition home or self-care (01) ==
DX: K31.84 Gastroparesis (principal); K59.01 Slow transit constipation